=== PATIENT | female | born 1970 | race Caucasian/White ===

== ENCOUNTER 2016-03-23 20:57 | Emergency (ER) | payer OTHER ==
[2016-03-23 21:31] VITALS: TEMP 98.8
[2016-03-23] MEDS ORDERED: ONDANSETRON DISINTEGRATING 4 MG TAB ONE (22:00)
[2016-03-23] MEDS ORDERED: ACETAMINOPHEN 500 MG TAB ONE ×2 (22:00→22:02)
--- NOTE | 2016-03-23 22:14 | EDPHY ---
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 The symptoms began while she was in the shower. She did not sustain a direct fall or trauma. The patient did have a mechanical fall last night but did not strike her head - she reports she fell head forward down a flight of stairs and primarily abrasions to her lower extremity and chest wall. She does have a history of having milder headaches in the past but reports this is a somewhat atypical headache for her. She denies any recent fever or illness. She denies recent medication changes. She does report associated photophobia and vomiting x2. REVIEW OF SYSTEMS: A comprehensive 10 point review of systems is otherwise negative aside from elements mentioned in the history of present illness. Source: Patient Exam Limitations: No limitations - Personal History Current Tetanus/Diphtheria Vaccine: Yes Current Tetanus Diphtheria and Acellular Pertussis (TDAP): Yes - Medical/Surgical History Hx Asthma: No Hx Chronic Respiratory Disease: No Hx Diabetes: No Hx Cardiac Disease: No Hx Renal Disease: No Hx Cirrhosis: No Hx Alcoholism: No Hx HIV/AIDS: No Hx Splenectomy or Spleen Trauma: No Other PMH: anxiety, rosacea - Social History Smoking Status: Current every day smoker - Physical Exam Exam: General Appearance: Alert, mild distress secondary to pain Eyes: Pupils equal and round no pallor or injection ENT, Mouth: Mucous membranes moist Respiratory: There are no retractions, lungs are clear to auscultation Cardiovascular: Regular rate and rhythm Gastrointestinal: Abdomen is soft and nontender, no masses, bowel sounds normal Neurological: A&O, normal motor function, normal sensory exam, normal cranial nerves Skin: Warm and dry, no rashes Musculoskeletal: Neck is supple nontender Extremities: symmetrical, full range of motion Psychiatric: Patient is oriented X 3, there is no agitation Constitutional: Initial Vital Signs Heart Rate 74 03/23/16 21:04 Respiratory Rate 18 03/23/16 21:04 Blood Pressure 155/113 H 03/23/16 21:04 O2 Sat (%) 98 03/23/16 21:04 O2 Delivery Mode Room Air Allergies/Adverse Reactions: peanut Allergy (Verified 03/23/16 21:07) Penicillins Allergy (Verified 03/23/16 21:07) Home Medications: Medication Instructions Recorded Bactrim SS 03/23/16 Lexapro 03/23/16 Ondansetron Odt [Zofran Odt] 4 mg PO Q4PRN PRN #20 tab 03/23/16 Medical Decision Making - Diagnostics Imaging: CT head without contrast: Negative for intracranial hemorrhage or other acute intracranial abnormality. CT angiogram and head neck: Study results reported to me by Dr. Spence. Negative for aneurysm, dissection, thrombosis, hemorrhage or vascular malformation. ED Course/Re-evaluation: The patient had an IV established. The patient received IV Zofran and morphine. The patient was taken for a noncontrast head CT scan which was negative. The patient also underwent CT angiogram of the head neck given her history of fall last night. Those results were also negative. The patient was re-evaluated at 11:30 p.m. the patient states that she is currently feeling better. She has been informed that she has a negative CT and CTA. I had a lengthy discussion with the patient about subarachnoid hemorrhage. I have informed her that she presents to the ED within 6 hours of a headache that a CT scan is approximately 95% sensitive for ruling out subarachnoid hemorrhage. Additionally she has a negative CT angiogram of her head neck which is also reassuring. She has been informed that we cannot fully exclude subarachnoid hemorrhage without performing a lumbar puncture. Although my clinical suspicion for this entity is low. At this point time the patient elects not to undergo lumbar puncture. She would like to see how things progress with her headache over the next day. She does understand that she should return to the ED immediately for severe headache or other acute complaints. The patient did receive Toradol and Phenergan in the emergency department. She will be referred to our neurologist for further evaluation of any for mild residual symptoms. Differential Diagnosis: Differential diagnosis considered includes subarachnoid hemorrhage, meningitis, carotid artery dissection, vertebral dissection - Data Points Laboratory Results: Laboratory Results 03/23/16 22:15 03/23/16 22:15 03/23/16 03/23/16 22:18 22:15 WBC 12.88 H 10^3/uL (3.80-9.50) RBC 5.38 H 10^6/uL (4.18-5.33) Hgb 15.6 g/dL (12.6-16.3) POC Hgb 15.6 gm/dL (12.3-15.9) Hct 44.7 % (38.0-47.0) POC Hct 46 % (35.5-47.5) MCV 83.1 fL (81.5-99.8) MCH 29.0 pg (27.9-34.1) MCHC 34.9 g/dL (32.4-36.7) RDW 13.2 % (11.5-15.2) Plt Count 306 10^3/uL (150-400) MPV 9.7 fL (8.7-11.7) Neut % (Auto) 78.5 H % (39.3-74.2) Lymph % (Auto) 14.4 L % (15.0-45.0) [place] % (Auto) 3.7 L % (4.5-13.0) Eos % (Auto) 1.6 % (0.6-7.6) Baso % (Auto) 0.9 % (0.3-1.7) Nucleat RBC Rel Count 0.0 % (0.0-0.2) Absolute Neuts (auto) 10.12 H 10^3/uL (1.70-6.50) Absolute Lymphs (auto) 1.85 10^3/uL (1.00-3.00) Absolute Monos (auto) 0.48 10^3/uL (0.30-0.80) Absolute Eos (auto) 0.21 10^3/uL (0.03-0.40) Absolute Basos (auto) 0.11 H 10^3/uL (0.02-0.10) Absolute Nucleated RBC 0.00 10^3/uL (0-0.01) Immature Gran % 0.9 % (0.0-1.1) Immature Gran # 0.11 H 10^3/uL (0.00-0.10) PT 12.2 SEC (12.0-15.0) INR 0.91 (0.83-1.16) APTT 25.2 SEC (23.0-38.0) POC Sodium 143 mEq/L (134-144) Sodium 142 mEq/L (134-144) POC Potassium 3.8 mEq/L (3.3-5.0) Potassium 4.2 mEq/L (3.5-5.2) POC Chloride 109 H mEq/L (96-108) Chloride 108 mEq/L (97-110) Carbon Dioxide 20 L mEq/l (22-31) Anion Gap 14 mEq/L (8-16) POC BUN 7 mg/dL (7-23) BUN 8 mg/dL (7-23) Creatinine 0.7 mg/dL (0.6-1.0) POC Creatinine 0.7 mg/dL (0.6-1.2) Estimated GFR > 60 Glucose 103 H mg/dL (70-100) POC Glucose 107 H mg/dL (70-100) Calcium 9.5 mg/dL (8.5-10.4) Medications Given: Discontinued Medications Ketorolac Tromethamine (Toradol) 30 mg IVP EDNOW ONE Stop: 03/23/16 23:43 Last Admin: 03/23/16 23:50 Dose: 30 mg Morphine Sulfate (Morphine) 4 mg IVP EDNOW ONE Stop: 03/23/16 22:17 Last Admin: 03/23/16 22:28 Dose: 4 mg Ondansetron HCl (Zofran) 4 mg IVP EDNOW ONE Stop: 03/23/16 22:17 Last Admin: 03/23/16 22:28 Dose: 4 mg Promethazine HCl (Phenergan Injection) 25 mg IVP EDNOW ONE Stop: 03/23/16 23:43 Last Admin: 03/23/16 23:50 Dose: 25 mg Point of Care Test Results: 03/23/16 22:18 POC Sodium 143 POC Potassium 3.8 POC Chloride 109 H POC BUN 7 POC Creatinine 0.7 POC Glucose 107 H Departure - Departure Disposition: Home, Routine, Self-Care Clinical Impression: Acute headache Condition: Good Instructions: Acute Headache (ED) Additional Instructions: 1. Please return to the emergency department for any worsening headache, numbness, weakness or other concerns. 2. The CT scans performed in the emergency department today demonstrate no evidence of intracranial hemorrhage, aneurysm or other obvious explanation of severe headache. As we discussed, a lumbar puncture would allow us to 100% exclude the presence of bleeding. You have been offered this procedure but declined. Please return to the ED should you have any progression of your symptoms or other concerns. 3. Take Ibuprofen or Motrin 600 mg by mouth three times a day. 4. Zofran as needed for nausea 5. Please follow up with neurologist you have been referred to for any residual symptoms. Referrals: Dennis Gregorio MD [Medical Doctor] - As per Instructions Prescriptions: Ondansetron Odt [Zofran Odt] 4 mg PO Q4PRN PRN #20 tab PRN Reason: For Nausea
[2016-03-23] MEDS ORDERED: ONDANSETRON 4 MG/2 ML VIAL IVP ONE (22:16)
[2016-03-23 22:33] LABS: % IMMATURE GRANULYOCYTES 0.9 % (0.0-1.1); ABSOLUTE IMMATURE GRANULOCYTES 0.11 10^3/uL (0.00-0.10); ADD DIFF? NO; ADD MORPH? NO; ADD SCAN? NO; ATYPICAL LYMPHOCYTE FLAG 0 (0-99); FRAGMENT RBC FLAG 0 (0-99); HEMATOCRIT 44.7 % (38.0-47.0); HEMOGLOBIN 15.6 g/dL (12.6-16.3); LEFT SHIFT FLG 10 (0-99); LIPEMIA HEMOLYSIS FLAG 90 (0-99); MEAN CELL HEMOGLOBIN CONCENTR. 34.9 g/dL (32.4-36.7); MEAN CELL VOLUME 83.1 fL (81.5-99.8); MEAN PLATELET VOLUME 9.7 fL (8.7-11.7); PLATELET CLUMPS FLAG 10 (0-99); PLATELET COUNT 306 10^3/uL (150-400); RED BLOOD CELL COUNT 5.38 10^6/uL (4.18-5.33); RED CELL DISTRIBUTION WIDTH 13.2 % (11.5-15.2)
[2016-03-23] MEDS ORDERED: IOPAMIDOL (ISOVUE 370) 100 ML BTL IV ONE (22:36)
[2016-03-23 22:39] LABS: INR 0.91 (0.83-1.16); PROTIME(PATIENT) 12.2 SEC (12.0-15.0)
[2016-03-23 22:40] LABS: APTT 25.2 SEC (23.0-38.0)
[2016-03-23 22:51] LABS: ANION GAP 14 mEq/L (8-16); CALCIUM 9.5 mg/dL (8.5-10.4); CARBON DIOXIDE 20 mEq/l (22-31); CHLORIDE 108 mEq/L (97-110); CREATININE 0.7 mg/dL (0.6-1.0); GLOMERULAR FILTRATION RATE > 60; GLUCOSE 103 mg/dL (70-100); POTASSIUM 4.2 mEq/L (3.5-5.2); SODIUM 142 mEq/L (134-144)
--- NOTE | 2016-03-23 23:17 | CT ---
CT Brain (Without Contrast) 2252 hours History: Severe occipital headache. Trauma from fall, March 22, 2016. Comparison: None. Technique: Axial computed tomographic images of the brain without contrast. Dose reduction technique s were utilized. Findings: Ventricles, cisterns, and sulci are normal without atrophy, hydrocephalus, midline shift/h erniation, or epidural/subdural hematomas. No acute intraparenchymal hemorrhage, definite infarct, or mass effect. Bone windows demonstrate no displaced fractures. Paranasal sinuses and mastoid air cell s are clear. No posterior fossa hemorrhage or mass effect. No evidence of skull fracture. Impression: 1. Normal CT brain without contrast. 2. Consider MRI of the brain without and with contrast enhancement, if there is continued clinical co ncern. Findings and recommendations discussed with Emergency Department physician, Dr. Serge Hung at 231 5 hour, today. Final report concurs with initial preliminary interpretation.
--- NOTE | 2016-03-23 23:31 | CT ---
CT Angiogram Neck With Contrast Enhancement and Multiplanar Reconstructions 2255 hours History: Severe occipital headache. Trauma from March 22, 2016. Technique: 1.25 mm axial multidetector helical CT imaging was performed through the brain and neck wh ile 75 mL Isovue-370 were injected intravenously without complication. The images were then transfer red to an independent workstation where multiplanar and three-dimensional reconstructions were perfor med by the interpreting physician and reviewed at multiple windows. Dose reduction techniques were ut ilized. CTA Findings: Origin the great vessels, bilateral common carotid arteries, carotid bulbs common inter nal carotid arteries demonstrate no flow-limiting stenosis, occlusion or dissection. No evidence of a therosclerotic disease. Bilateral vertebral arteries appear patent and codominant without dissection, occlusion, or flow-limiting stenosis. Impression: 1. No evidence of carotid or vertebral dissection, flow-limiting stenosis or occlusion. 2. Patent bilateral vertebral arteries. Measurement of carotid stenosis is based on the residual internal carotid diameter with [place] Symptomatic Carotid Endarterectomy Trial (NASCET) based stenosis levels. CT Angiogram of the Brain Clinical Indications: Severe occipital headache. Trauma from March 22, 2016. Technique: CT angiogram of the brain and neck was performed with the uneventful intravenous administ ration of 75 mL Isovue-370 contrast. Multiplanar reconstructions including 3D reconstructions perform ed and evaluated on [employer] workstation in order to better evaluate the [place] vessels. Imag es were manipulated by the radiologist at the computer workstation.Dose reduction techniques were uti lized. Findings: Major vessels of the [place] are adequately displayed, demonstrating no evidence of aneurysm, vascular malformation, flow-limiting stenosis, or occlusion. Bilateral cavernous interna l carotid arteries and vertebrobasilar system demonstrates no evidence of flow-limiting stenosis, ane urysm, occlusion, or dissection. Superior sagittal sinus, transverse sinuses, and major veins demonst rate no evidence of intraluminal thrombi. No evidence of basilar tip aneurysm. Impression: Negative CT angiogram of the brain. Findings and recommendations discussed with Emergency Department physician, Dr. Serge Hung, at 23 25 hours.
--- NOTE | 2016-03-23 23:31 | CT ---
CT Angiogram Neck With Contrast Enhancement and Multiplanar Reconstructions 2255 hours History: Severe occipital headache. Trauma from March 22, 2016. Technique: 1.25 mm axial multidetector helical CT imaging was performed through the brain and neck wh ile 75 mL Isovue-370 were injected intravenously without complication. The images were then transfer red to an independent workstation where multiplanar and three-dimensional reconstructions were perfor med by the interpreting physician and reviewed at multiple windows. Dose reduction techniques were ut ilized. CTA Findings: Origin the great vessels, bilateral common carotid arteries, carotid bulbs common inter nal carotid arteries demonstrate no flow-limiting stenosis, occlusion or dissection. No evidence of a therosclerotic disease. Bilateral vertebral arteries appear patent and codominant without dissection, occlusion, or flow-limiting stenosis. Impression: 1. No evidence of carotid or vertebral dissection, flow-limiting stenosis or occlusion. 2. Patent bilateral vertebral arteries. Measurement of carotid stenosis is based on the residual internal carotid diameter with [place] Symptomatic Carotid Endarterectomy Trial (NASCET) based stenosis levels. CT Angiogram of the Brain Clinical Indications: Severe occipital headache. Trauma from March 22, 2016. Technique: CT angiogram of the brain and neck was performed with the uneventful intravenous administ ration of 75 mL Isovue-370 contrast. Multiplanar reconstructions including 3D reconstructions perform ed and evaluated on [employer] workstation in order to better evaluate the [place] vessels. Imag es were manipulated by the radiologist at the computer workstation.Dose reduction techniques were uti lized. Findings: Major vessels of the [place] are adequately displayed, demonstrating no evidence of aneurysm, vascular malformation, flow-limiting stenosis, or occlusion. Bilateral cavernous interna l carotid arteries and vertebrobasilar system demonstrates no evidence of flow-limiting stenosis, ane urysm, occlusion, or dissection. Superior sagittal sinus, transverse sinuses, and major veins demonst rate no evidence of intraluminal thrombi. No evidence of basilar tip aneurysm. Impression: Negative CT angiogram of the brain. Findings and recommendations discussed with Emergency Department physician, Dr. Serge Hung, at 23 25 hours.
[2016-03-23] MEDS ORDERED: KETOROLAC 30 MG/1 ML SDV IVP ONE (23:42)
[2016-03-23] MEDS ORDERED: PROMETHAZINE HCL 25 MG/ML VIAL IVP ONE (23:42)
[2016-03-23 23:51] VITALS: BP 116/88; PULSE 70; RESP 14; O2SAT 96
== END 2016-03-24 00:24 | disposition home or self-care (01) ==
DX: S09.90XA Unspecified injury of head, initial encounter (principal); F17.200 Nicotine dependence, unspecified, uncomplicated; Z91.010 Allergy to peanuts; W10.9XXA Fall (on) (from) unspecified stairs and steps, initial encounter
CPT/HCPCS: 82947-QW; 96374; J1885; J2550; Q9967